=== PATIENT | female | born 1990 | race Caucasian/White ===

== ENCOUNTER → 2017-08-27 | Outpatient (CLI) | payer OTHER ==
[~2017-08-27] MED LIST: PRENTAB26 PO
[2017-08-27 14:49] LABS: BASO % 0.1 %; BASO ABS # 0.01 K/uL (0-0.2); EOS % 0.4 %; EOS ABS # 0.04 K/uL (0-0.5); HEMATOCRIT 33.6 % (37-47); HEMOGLOBIN 11.7 g/dL (12.0-16.0); IG# 0.06 K/uL (0.00-0.02); LYMPH % 18.2 %; LYMPH ABS # 2.01 K/uL (1.2-3.4); MEAN CELL VOLUME 91.6 fL (80-100); MEAN CORPUSCULAR HEMOGLOBIN 31.9 pg (25-34); MEAN CORPUSCULAR HGB CONC 34.8 g/dl (32-36); MONO % 5.8 %; MONO ABS # 0.64 K/uL (0.11-0.59); NEUT ABS # 8.26 K/uL (1.4-6.5); PLATELET COUNT 149 K/uL (130-400); RED CELL DISTRIBUTION WIDTH CV 13.7 % (11.5-14.5); RED CELL DISTRIBUTION WIDTH SD 45.4 fL (36.4-46.3); WHITE BLOOD COUNT 11.02 K/uL (4.8-10.8)
== END | disposition home or self-care (01) ==
LOC: C.LAB 13:50
PROVIDERS: ATTEND Obstetrics & Gynecology
DX: Z01.812 Encounter for preprocedural laboratory examination (principal)

== ENCOUNTER 2017-08-28 05:33 | Inpatient (IN) | payer OTHER ==
[~2017-08-28] VITALS: Ht 167.6 cm; Wt 73.5 kg
[2017-08-28] MEDS ORDERED: LACTATED RINGER'S 1000ML 1,000 ML IV SCH (05:45)
[2017-08-28] MEDS ORDERED: CITRIC ACID/SODIUM CITRATE 15 ML UDC PO ONE (05:45)
[2017-08-28 05:59] LABS: BASO % 0.4 %; BASO ABS # 0.04 K/uL (0-0.2); EOS % 0.8 %; EOS ABS # 0.07 K/uL (0-0.5); HEMATOCRIT 32.8 % (37-47); HEMOGLOBIN 11.4 g/dL (12.0-16.0); IG# 0.06 K/uL (0.00-0.02); LYMPH % 25.1 %; LYMPH ABS # 2.24 K/uL (1.2-3.4); MEAN CELL VOLUME 89.9 fL (80-100); MEAN CORPUSCULAR HEMOGLOBIN 31.2 pg (25-34); MEAN PLATELET VOLUME 8.8 fL (7.4-10.4); MONO % 8.9 %; MONO ABS # 0.79 K/uL (0.11-0.59); NEUT % 64.1 %; NEUT ABS # 5.71 K/uL (1.4-6.5); PLATELET COUNT 143 K/uL (130-400); RED CELL DISTRIBUTION WIDTH CV 13.6 % (11.5-14.5); WHITE BLOOD COUNT 8.91 K/uL (4.8-10.8)
[2017-08-28] MEDS ORDERED: CLINDAMYCIN IV 900 MG in DEXTROSE 5% ADD-VANTAGE 100ML IV SCH (06:00)
[2017-08-28] MEDS ORDERED: CITRIC ACID/SODIUM CITRATE 15 ML UDC PO SCH (06:00)
[2017-08-28 06:02] LABS: MEAN CORPUSCULAR HGB CONC 34.8 g/dl (32-36)
[2017-08-28 06:18] VITALS: Ht 167.6 cm; Wt 73.5 kg
--- NOTE | 2017-08-28 07:20 | Discharge Instructions ---
Discharge Instructions Date of Service Aug 28, 2017. Admission Reason for Admission: Breech Presentation Discharge Discharge Diagnosis / Problem: term Discharge Goals Goal(s): Routine recovery after delivery, Continuing OB care Activity Recommendations Activity Limitations: as noted below Lifting Limitations: no more than 10 pounds May Resume Sexual Activity: when tolerated Shower/Bathe: no limitations Driving or Machine Use: no limitations . Current Hospital Diet Patient's current hospital diet: Discharge Diet Recommended Diet: Regular Diet, Regular OB Diet Fluid Restriction: None Pending Studies Studies pending at discharge: no Medical Emergencies . Who to Call and When: Medical Emergencies: If at any time you feel your situation is an emergency, please call 911 immediately. . Non-Emergent Contact Non-Emergency issues call your: Primary Care Provider . . "Provider Documentation" section prepared by Kadeem Cruz. .
--- NOTE | 2017-08-28 07:22 | Progress Note ---
Progress Note Date of Service Aug 28, 2017. Progress Note Patient scheduled today for for breech presentation. I scanned her this morning and she was found to be in the vertex presentation. I discharged her to home with follow up Saturday in the office.
--- NOTE | 2017-08-28 07:34 | HISTORY & PHYSICAL EXAMINATION ---
DATE OF ADMISSION: 08/28/2017 REASON FOR ADMISSION AND CHIEF COMPLAINT: Term , breech, 39 weeks. HISTORY OF PRESENT ILLNESS: The patient is a 27-year-old female para 1-0-0-1 who presents on 08/27/2017 to the office and found to be in breech presentation. The patient was scheduled for elective repeat section and bilateral tubal ligation. She was given the option of version and declined. The risks, benefits, alternatives to the surgery were described to her in detail. Consents were signed. PAST MEDICAL HISTORY: Nonsignificant. SOCIAL HISTORY: Denies smoking, alcohol or drug use. ALLERGIES: PENICILLIN. MEDICATIONS: vitamin. PHYSICAL EXAMINATION: HEENT: Within normal limits. LUNGS: Clear to auscultation. COR: Regular rate and rhythm. ABDOMEN: Soft, gravid, breech. NEUROLOGICALLY: Intact. EXTREMITIES: Within normal limits. ASSESSMENT: Term , breech at 39 weeks, Rh negative status. GBS is positive. PLAN: Primary section and bilateral tubal ligation for voluntary sterilization procedure.
== END 2017-08-28 07:49 | disposition home or self-care (01) | DRG 782 ==
LOC: C.LD 05:33 → EDSTATUS 14:34
PROVIDERS: ADMIT Obstetrics & Gynecology; ATTEND Obstetrics & Gynecology
DX: O32.1XX1 Maternal care for breech presentation, fetus 1 (principal); Z3A.39 39 weeks gestation of pregnancy; Z22.330 Carrier of Group B streptococcus

== ENCOUNTER 2017-09-03 07:36 | Inpatient (IN) | payer OTHER ==
[~2017-09-03] VITALS: Ht 165.1 cm; Wt 74.0 kg
[2017-09-03 08:08] VITALS: Ht 165.1 cm; Wt 74.0 kg
[2017-09-03] MEDS ORDERED: CEFAZOLIN IV 2,000 MG in DEXTROSE 5% 50ML 50 ML IV ONE (09:45)
[2017-09-03] MEDS ORDERED: LACTATED RINGER'S 1000ML 1,000 ML IV PRN (09:45)
[2017-09-03] MEDS ORDERED: MISOPROSTOLTAB 50 MCG TAB PO PRN (09:45)
[2017-09-03] MEDS ORDERED: CEFAZOLIN IV 2,000 MG in SYRINGE 0 ML IV ONE (10:00)
[2017-09-03 10:03] LABS: HEMATOCRIT 32.4 % (37-47); HEMOGLOBIN 11.2 g/dL (12.0-16.0); MEAN CELL VOLUME 90.5 fL (80-100); MEAN CORPUSCULAR HEMOGLOBIN 31.3 pg (25-34); MEAN CORPUSCULAR HGB CONC 34.6 g/dl (32-36); MEAN PLATELET VOLUME 8.9 fL (7.4-10.4); PLATELET COUNT 155 K/uL (130-400); RED CELL DISTRIBUTION WIDTH CV 13.8 % (11.5-14.5); RED CELL DISTRIBUTION WIDTH SD 45.4 fL (36.4-46.3); WHITE BLOOD COUNT 10.28 K/uL (4.8-10.8)
[2017-09-03] MEDS: LACTATED RINGER'S 1000ML 1,000 ML IV SCH ×2 (10:10→19:06)
--- NOTE | 2017-09-03 10:12 | HISTORY & PHYSICAL EXAMINATION ---
DATE OF ADMISSION: 09/03/2017 HISTORY OF PRESENT ILLNESS: The patient is a 27-year-old G2, P1, due date 09/04/2017, making her 39 weeks and 5 days today. The patient had had an unremarkable course. At 38 weeks and 6 days gestation, the patient was seen in the office for routine care. Infant was found to be in breech presentation. The patient was scheduled for a the next day on 08/28/2017. On the morning of that day, ultrasound done showed that the fetus was now cephalic. was of course cancelled. She is here today for induction of labor. Ultrasound done confirms that the fetus is still in cephalic presentation. The patient's was also complicated by gestational diabetes and only required diet treatment. No medication was ever required. On arrival to labor and delivery today, the patient has no shortness of breath, no chills, no fever. heart rate is category 1. As stated above, bedside ultrasound today shows cephalic presentation. LABS: Blood type is O negative, antibody negative, rubella immune, GBS positive. PAST MEDICAL HISTORY: The patient has history of mastitis, allergic rhinitis and acne. PAST SURGICAL HISTORY: The patient had tonsillectomy at age 12. ALLERGIES: THE PATIENT ALLERGIC TO PENICILLIN. SHE REPORTS RASH WITH PENICILLIN. She has no anaphylactic reaction with penicillin. SOCIAL HISTORY: The patient is . Denies drugs, smoking or alcohol use. 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 Infant weighed 9 pounds. PHYSICAL EXAMINATION: GENERAL: Well-developed, well-nourished white female in no acute distress. HEART: S1, S2, regular rhythm and rate. LUNGS: Clear to auscultation bilaterally. ABDOMEN: Gravid. heart rate is category 1. Pelvic exam shows she is 2 cm, 50% effaced, and -3. Estimated weight by [facility] is 8 pounds. EXTREMITIES: No cyanosis, clubbing or edema. ASSESSMENT AND PLAN: A 27-year-old G2, P1 at 39 weeks and 5 days, here for induction of labor. Fetus was breech last week and in the office was scheduled for . On the day of , was found to be in cephalic presentation. Today, patient is here for induction. An ultrasound done this morning confirms that the fetus is in cephalic presentation. The patient is positive for group B strep. She has history of ALLERGY TO PENICILLIN. ALLERGY TO PENICILLIN IS A RASH: Denies anaphylactic reaction. I have discussed with patient the use of Ancef. She has agreed. She understands there is a 4-10% chance that she might have an allergic reaction to Ancef as well. Plan is to proceed with induction of labor.
[2017-09-03] MEDS: CEFAZOLIN IV 1,000 MG in SYRINGE 0 ML IV PRN (17:55)
[2017-09-03] MEDS ORDERED: LACTATED RINGER'S 1000ML 500 ML IV PRN (18:34)
[2017-09-03] MEDS: OXYTOCIN 30 UNITS/500ML NSS IV PRN (21:15)
[2017-09-04] MEDS ORDERED: BUPIVACAINE 0.25% 30 ML VIAL ONE (01:51)
[2017-09-04] MEDS ORDERED: FENTANYL CITRATE INJ 50 MCG/1 ML 2 ML VIAL ONE (01:52)
[2017-09-04] MEDS ORDERED: EpHEDrine SULFATE INJ 50 MG/ML AMP ONE (01:52)
[2017-09-04] MEDS ORDERED: FENTANYL 2MCG/ML ROPIV 1.25MG/ML 100ML BAG EPI ONE (01:53)
[2017-09-04] MEDS: CEFAZOLIN IV 1,000 MG in SYRINGE 0 ML IV PRN (02:01)
[2017-09-04] MEDS: LACTATED RINGER'S 1000ML 1,000 ML IV SCH (02:32)
[2017-09-04] MEDS ORDERED: LACTATED RINGER'S 1000ML 500 ML IV PRN (02:37)
[2017-09-04] MEDS ORDERED: NALOXONE HCL INJ 1 MG in SODIUM CHLORIDE 0.9% 1000ML 1,000 ML IV PRN (02:37)
[2017-09-04] MEDS ORDERED: EpHEDrine SULFATE INJ 50 MG/ML AMP IV PRN (02:45)
[2017-09-04] MEDS ORDERED: ONDANSETRON INJ 2 MG/ML 2 ML VIAL IV PRN (02:45)
[2017-09-04] MEDS ORDERED: FENTANYL 2MCG/ML ROPIV 1.25MG/ML 100ML BAG EPI PRN (02:45)
[2017-09-04] MEDS ORDERED: NALBUPHINE HCL INJ 10 MG/ML AMP IV PRN (02:45)
[2017-09-04] MEDS ORDERED: DiphenhydrAMINE HCL 50 MG/ML VIAL IV PRN (02:45)
[2017-09-04] MEDS ORDERED: NALOXONE HCL INJ 0.4 MG/1 ML VIAL/CARP IV PRN (02:45)
[2017-09-04] MEDS: OXYTOCIN 30 UNITS/500ML NSS IV PRN (05:07)
[2017-09-04] MEDS ORDERED: OXYTOCIN INJ 20 UNITS in LACTATED RINGER'S 1000ML 1,000 ML IV SCH (05:12)
[2017-09-04] MEDS ORDERED: IBUPROFEN 600 MG TAB PO PRN (05:15)
[2017-09-04] MEDS ORDERED: ACETAMINOPHEN/CODEINE 300/30MG TAB PO PRN ×2 (05:15)
[2017-09-04] MEDS ORDERED: LANOLIN OINT EXT PRN (05:15)
[2017-09-04] MEDS ORDERED: HYDROCORTISONE ACETATE 25 MG SUPP PR PRN (05:15)
[2017-09-04] MEDS ORDERED: OXYCODONE/ACETAMINOPHEN 5-325 TAB PO PRN (05:15)
[2017-09-04] MEDS ORDERED: SUPERCREAM 0.870 % 15GM JAR EXT PRN (05:15)
[2017-09-04] MEDS ORDERED: ACETAMINOPHEN 325 MG TAB PO PRN (05:15)
[2017-09-04] MEDS ORDERED: BENZOCAINE 20% AER SPR 82.5 GM CAN EXT PRN (05:15)
[2017-09-04] MEDS ORDERED: OXYTOCIN 30 UNITS/500ML NSS IV PRN (05:15)
[2017-09-04] MEDS ORDERED: MISOPROSTOL 200 MCG TAB PR ONE (05:17)
--- NOTE | 2017-09-04 05:22 | Anesthesia Procedure Note ---
Anesthesia Epidural Removal Nt Date & Time Sep 04, 2017 at 05:21 Vital Signs Pain Intensity: 0.0 Notes Mental Status: alert / awake / arousable, participated in evaluation Nausea / Vomiting: adequately controlled Pain: adequately controlled Airway Patency, RR, SpO2: stable & adequate BP & HR: stable & adequate Hydration State: stable & adequate Neuraxial Anesthesia: was administered, sensory block is resolving Anesthetic Complications: no major complications apparent, pt satisfied with anesthetic care Epidural: removed without complications, with tip intact
--- NOTE | 2017-09-04 05:36 | DELIVERY SUMMARY ---
DATE OF OPERATION: 09/04/2017 The patient delivered a live infant male in left occiput anterior presentation. This was also a left hand compound presentation. There was no nuchal cord, but there was however a body cord. Infant's cord was wrapped around the infant's right shoulder. Infant was delivered, placed on mother's abdomen. Cord was clamped and cut. Cord gas was obtained. scores 8 and 9. Placenta was spontaneously delivered. Inspection of the placenta shows a grossly normal placenta with 3-vessel cord. Inspection of the perineum showed a second-degree midline laceration with a right lateral wall laceration as well. This was repaired in layers with 2-0 Vicryl. Rectal exam post repair showed good sphincter tone. There are no sutures palpated in the rectum. Estimated blood loss was 500 mL All instruments were removed from the vagina and accounted for x2 including sponges and needles. Baby and mother are doing well in recovery. I attest to the content of the Intraoperative Record and any orders documented therein. Any exception s are noted below.
[2017-09-04 07:30] VITALS: BP 111/70; PULSE 80; TEMP 36.4
[2017-09-04] MEDS: PRENATAL VITAMIN TAB PO SCH (07:46)
[2017-09-04] MEDS: DOCUSATE SODIUM 100 MG CAP PO SCH ×2 (07:46→20:14)
[2017-09-04] MEDS: FERROUS SULFATE 325 MG TAB PO SCH (07:46)
[2017-09-04 11:25] VITALS: BP 103/68; PULSE 64; TEMP 36.8
[2017-09-04 15:35] VITALS: BP 109/74; PULSE 76; TEMP 37
[2017-09-04 20:25] VITALS: BP 105/75; PULSE 77; TEMP 36.8; O2SAT 98
[2017-09-04 23:15] VITALS: BP 106/68; PULSE 72; TEMP 36.6; O2SAT 97
[2017-09-05 04:25] VITALS: BP 89/55; PULSE 76; TEMP 36.8; O2SAT 97
[2017-09-05 06:41] LABS: HEMATOCRIT 32.8 % (37-47); HEMOGLOBIN 11.4 g/dL (12.0-16.0)
--- NOTE | 2017-09-05 07:12 | Discharge Instructions ---
Discharge Instructions Date of Service Sep 05, 2017. Admission Reason for Admission: Induction Discharge Discharge Diagnosis / Problem: Vaginal Delivery Discharge Goals Goal(s): Routine recovery after delivery Medications Continue Dispensed Medications: supercream, dermaplast, tucks, lansinoh Activity Recommendations Activity Limitations: per Instructions/Follow-up section . Instructions / Follow-Up Instructions / Follow-Up ACTIVITY RECOMMENDATIONS: * Gradual return to full activity over the next 2-3 weeks. * No lifting - nothing heavier than baby over the next 2-3 weeks. * Do not engage in vigorous exercise, sexual activity or sports until cleared by your physician. * Do not drive or operate any motorized equipment until cleared by your physician. * You may shower/bathe daily. BREAST CARE: If you are not breast feeding: * Wear a supportive bra 24 hours a day for one to two weeks. * Avoid stimulating your breasts and nipples as much as possible during the first few weeks after delivery. * When taking a shower, have the warm water hit your back, not breasts. * When your breasts feel full, apply ice packs. Usually three to four times a day helps ease the discomfort. * Take a mild pain medication (Tylenol/Motrin) when you are uncomfortable. If breast feeding: * Use breast milk to lubricate nipples. Lansinoh cream may be used for sore nipples. You do not need to remove cream prior to breast feeding. If using a different brand of cream, check the label for directions regarding removal of cream prior to nursing. * Wear a supportive bra. * If having problems with breasts or breast feeding, call a payroll consultant or your health care provider. EPISIOTOMY CARE: After delivery, if you have an episiotomy (stitches), the following steps will ease discomfort and aid healing. * For the first 24 hours after delivery, place ice packs next to your episiotomy to help reduce swelling. * After the first 24 hour-period, sitz baths, either portable or in the tub, are suggested. A shower with a shower arm sprayed over the episiotomy may be comforting. * Nichol care should be done after each voiding and bowel movement. Squirt warm water from a plastic bottle over the perineum (region of the body between the anus and urinary opening) and pat dry. * Use Dermoplast to ease discomfort. Shake container. Pillow directly over the episiotomy. * Place a Tucks on a clean sanitary pad next to your episiotomy. OVER THE COUNTER MEDICATION: * For discomfort or pain, you may use Acetaminophen (Tylenol), Ibuprofen (Advil ), or Naproxen (Aleve) following the package directions. * For constipation you may use Colace following the package directions. SPECIAL CARE INSTRUCTIONS: When you are discharged from the hospital, it is important for you to follow the instructions listed below: * During the first week at home, you should be able to care for yourself and your baby. In addition, the usual light household activities are encouraged. * Limit your activities to the way you feel. Do not try to clean the house or move furniture. Be sensible. * If you actively engage in sports and have done so up until the time of your delivery, you may resume these activities as soon as you feel able. This may take up to one month or even longer. Use good judgment. * Continue to take your vitamins for at least six weeks after the of your baby. * Your diet need not be limited unless you were on a special diet before your delivery. Breast-feeding mothers need around 2500 calories per day and at least 64-80 ounces of fluid per day (8 to 10 glasses). * You should eat foods from the four major food groups. Crash diets or fad diets are to be avoided. Eating lean meats, fresh fruits and vegetables, low-fat dairy products, high fiber foods and a regular exercise program, will help you get back to your pre- weight without putting your health at risk. * Constipation is sometimes a problem after delivery. Take a mild laxative as needed. If breast feeding, Milk of Magnesia is acceptable to use. You may use a suppository or Fleets enema if no episiotomy. * A daily shower or tub bath is suggested. Be sure to thoroughly and gently dry the perineum. * A bloody vaginal discharge will usually continue until around four weeks post . A small amount of bleeding may continue for as long as six weeks. Vaginal discharge changes from the bright red bleeding after delivery to pink then brownish and finally yellowish-pink before becoming white and disappearing. * Bleeding may increase with activity. Your first period may come in 4-8 weeks. If you are breast feeding, your period may be delayed even longer. * Kaycee (sex) can begin whenever both you and your partner feel comfortable and do not have any form of genital infection. It is recommended that you wait until after your return appointment and discuss with your physician. If you have questions, please talk to your health care practitioner. A condom should be used to prevent infection and . * Foreplay, gentle intercourse and lubrication is very important the first several times to prevent pain. A water-based lubricant such as K-Y jelly or Astroglide may be used. * Tampons may be used six weeks after delivery. * Douching should be avoided for 6 weeks after delivery. * If you have RH negative blood and your baby is RH positive, you will receive RHOGAM by injection prior to discharge. The nurse will give you a card to keep with you that has the date and place that you received RHOGAM after delivery. * During your care, you had a Rubella screen done to check for the presence of rubella antibodies in your blood. If your test was negative, you will receive a Rubella vaccine prior to discharge. This vaccine may cause a fever, soreness at the injection site and flu-like symptoms. If these symptoms persist, notify your health care practitioner. is not advised for three months after a Rubella vaccine. There is a higher chance of having a baby with defects if conceived within three months of getting the vaccine. * If you were discharged 24 hours from delivery or before 48 hours: Visiting nurses will come to your home 48 hours after discharge to assess you and your baby. The visiting nurse will meet with you while you are in the hospital to arrange a time and get directions to your home. * Verbalizes understanding of car seat law as reviewed with patient nursing. * Car Seat hand-out given and reviewed with patient by nursing. * Shaken baby information reviewed with patient by nursing. Call you doctor if: * Heavy bleeding (saturating several pads an hour) or passing clots the size of your fist. * A fever >101 degrees F (38.3 degrees C) on two occasions four hours apart and/or chills. * Unusual pain in the pelvic or vaginal areas. * "Baby Blues" lasting longer than two weeks. If you have any questions or concerns, call your health care practitioner at . FOLLOW-UP VISIT: * Please call the office at to schedule a 6 week examination. It is important you keep this appointment. * It is important for you to make arrangements for either yearly or twice yearly check-ups thereafter. Current Hospital Diet Patient's current hospital diet: Regular OB Diet Discharge Diet Recommended Diet: Regular OB Diet Pending Studies Studies pending at discharge: no Medical Emergencies . Who to Call and When: Medical Emergencies: If at any time you feel your situation is an emergency, please call 911 immediately. . Non-Emergent Contact Non-Emergency issues call your: Primary Care Provider, Hop Picker . . "Provider Documentation" section prepared by Rios Alexandre. .
--- NOTE | 2017-09-05 07:13 | OB/GYN Progress Note ---
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 Subjective conversation w/ patient, physical exam Ambulation: ambulating normally Voiding: no voiding problems Passing Gas: Yes Diet Tolerance: Regular Diet Lochia: Small Feeding Type: Breast Feeding Pain: 0 Notes: Doing well, no concerns. Would like to go home today. Objective Vital Signs Date Time Temp Pulse Resp B/P (MAP) Pulse Ox O2 Delivery O2 Flow Rate FiO2 09/05/17 04:25 36.8 76 16 89/55 (66) 97 Room Air 09/04/17 23:15 97 Room Air 09/04/17 23:15 36.6 72 16 106/68 (81) 97 Room Air 09/04/17 20:25 36.8 77 16 105/75 (85) 98 Room Air 09/04/17 15:35 37.0 76 18 109/74 (86) Room Air 09/04/17 15:35 Room Air 09/04/17 11:25 36.8 64 18 103/68 (80) Room Air 09/04/17 07:30 Room Air 09/04/17 07:30 36.4 80 20 111/70 (84) Room Air Physical Exam General Appearance: WELL-APPEARING Respiratory/Chest: chest non-tender, lungs clear Cardiovascular: regular rate, rhythm Abdomen: normal bowel sounds, soft Fundus: Firm Extremities: normal range of motion, non-tender, no calf tenderness Laboratory Results Last 24 Hours Test 09/05/17 06:23 Hemoglobin 11.4 g/dL Hematocrit 32.8 % Assessment and Plan Post- Day Number: 1 Continue Routine Care: -D/C home today -F/U in 6 weeks.
[2017-09-05] MEDS: DOCUSATE SODIUM 100 MG CAP PO SCH ×2 (08:07→20:20)
[2017-09-05] MEDS: PRENATAL VITAMIN TAB PO SCH (08:07)
[2017-09-05] MEDS: FERROUS SULFATE 325 MG TAB PO SCH (08:07)
[2017-09-05 08:10] VITALS: BP 100/63; PULSE 64; TEMP 36.4; O2SAT 97
[2017-09-05 08:42] VITALS: O2SAT 97
[2017-09-05 15:50] VITALS: BP 111/72; PULSE 72; TEMP 36.6; O2SAT 96
[2017-09-05] MEDS ORDERED: BISACODYL 5 MG TABEC PO SCH (20:00)
[2017-09-05 23:05] VITALS: BP 97/61; PULSE 83; TEMP 36.7; O2SAT 99
[2017-09-06] MEDS ORDERED: BISACODYL 10 MG SUPP PR PRN (07:00)
[2017-09-06 07:54] LABS: HEMATOCRIT 33.9 % (37-47); HEMOGLOBIN 11.4 g/dL (12.0-16.0); MEAN CELL VOLUME 92.4 fL (80-100); MEAN CORPUSCULAR HEMOGLOBIN 31.1 pg (25-34); MEAN CORPUSCULAR HGB CONC 33.6 g/dl (32-36); MEAN PLATELET VOLUME 9.1 fL (7.4-10.4); PLATELET COUNT 169 K/uL (130-400); RED CELL DISTRIBUTION WIDTH CV 13.5 % (11.5-14.5); RED CELL DISTRIBUTION WIDTH SD 45.3 fL (36.4-46.3); WHITE BLOOD COUNT 14.29 K/uL (4.8-10.8)
[2017-09-06 08:00] VITALS: BP 91/57; PULSE 65; TEMP 36.5
[2017-09-06] MEDS: FERROUS SULFATE 325 MG TAB PO SCH (08:33)
[2017-09-06] MEDS: PRENATAL VITAMIN TAB PO SCH (08:33)
[2017-09-06] MEDS ORDERED: MTR600X PO (10:33)
--- NOTE | 2017-09-06 10:51 | OB/GYN Progress Note ---
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 Subjective conversation w/ patient, physical exam Ambulation: ambulating normally Voiding: no voiding problems Passing Gas: Yes Diet Tolerance: Regular Diet Objective Vital Signs Date Time Temp Pulse Resp B/P (MAP) Pulse Ox O2 Delivery O2 Flow Rate FiO2 09/06/17 08:00 36.5 65 16 91/57 (68) Room Air 09/06/17 07:50 Room Air 09/05/17 23:05 36.7 83 16 97/61 (73) 99 Room Air 09/05/17 23:05 99 Room Air 09/05/17 15:50 96 Room Air 09/05/17 15:50 36.6 72 18 111/72 (85) 96 Room Air Physical Exam General Appearance: WELL-APPEARING, NO APPARENT DISTRESS Fundus: Firm Extremities: non-tender, normal inspection, no pedal edema Laboratory Results Last 24 Hours Test 09/06/17 07:32 White Blood Count 14.29 K/uL Red Blood Count 3.67 M/uL Hemoglobin 11.4 g/dL Hematocrit 33.9 % Mean Corpuscular Volume 92.4 fL Mean Corpuscular Hemoglobin 31.1 pg Mean Corpuscular Hemoglobin Concent 33.6 g/dl RDW Standard Deviation 45.3 fL RDW Coefficient of Variation 13.5 % Platelet Count 169 K/uL Mean Platelet Volume 9.1 fL Assessment and Plan Post- Day Number: 1 Continue Routine Care: tent d/c in AM
[2017-09-06 11:00] VITALS: BP_DIAS 57; PULSE 65; TEMP 36.5
== END 2017-09-06 11:15 | disposition home or self-care (01) | DRG 775 ==
LOC: C.LD 07:36 → C.OBG 09-04 07:54
PROVIDERS: ADMIT Obstetrics & Gynecology; ATTEND Obstetrics & Gynecology
PROC: 3E0P7GC Introduction of Other Therapeutic Substance into Female Reproductive, Via Natural or Artificial Opening (ICD-10-PCS; 2017-09-03)
PROC: 0KQM0ZZ Repair Perineum Muscle, Open Approach (ICD-10-PCS; principal; 2017-09-04)
PROC: 10E0XZZ Delivery of Products of Conception, External Approach (ICD-10-PCS; principal; 2017-09-04)
DX: O64.8XX0 Obstructed labor due to other malposition and malpresentation, not applicable or unspecified (principal); O24.420 Gestational diabetes mellitus in childbirth, diet controlled; O69.82X0 Labor and delivery complicated by other cord entanglement, without compression, not applicable or unspecified; O70.1 Second degree perineal laceration during delivery; O99.824 Streptococcus B carrier state complicating childbirth; Z88.0 Allergy status to penicillin; Z3A.39 39 weeks gestation of pregnancy; Z37.0 Single live birth

== ENCOUNTER 2020-07-25 23:44 | Inpatient (IN) ==
[2020-07-25] MEDS ORDERED: OXYTOCIN 30 UNITS/500 ML BAG IV PRN (23:48)
[2020-07-25] MEDS ORDERED: ceFAZolin 1000MG 1,000 MG/7.5 ML SYR IV PRN (23:50)
[2020-07-25] MEDS ORDERED: ceFAZolin 2000MG 2,000 MG/15 ML SYR IV STA (23:50)
[2020-07-25] MEDS: LACTATED RINGER'S 1,000 ML IV PRN (23:59)
[2020-07-26] MEDS ORDERED: BUTORPHANOL TARTRATE 1 MG/ML VIAL IV STA (00:06)
[2020-07-26] MEDS ORDERED: BUTORPHANOL TARTRATE 1 MG/ML VIAL ONE (00:07)
--- NOTE | 2020-07-26 00:11 | Obstetrical Progress Note ---
Date of Service July 26, 2020 Assessment & Plan Admission and Anticipated Discharge Date Admission Date: July 25, 2020 Physical Exam Physical Exam: Admit Note 30 F P2002 at 39.3 weeks admitted with SROM clear fluid and active labor. Cervix 5/100/0/vertex/anterior. GBS is positive. Covid is unknown. Will admit in active labor. Anticipate normal delivery.
[2020-07-26 00:13] LABS: Hematocrit (blood only) 36.6 % (37-47); Hemoglobin 12.7 g/dL (12.0-16.0); Mean Corpuscular Hemoglobin 31.4 pg (25-34); Mean Corpuscular Hgb Conc 34.7 g/dL (32-36); Mean Corpuscular Volume 90.6 fL (80-100); Mean Platelet Volume 9.1 fL (7.4-10.4); Platelet Count 151 K/uL (130-400); RDW Coefficient of Variation 13.4 % (11.5-14.5); RDW Standard Deviation 44.1 fL (36.4-46.3); Red Blood Count 4.04 M/uL (4.2-5.4); White Blood Count 8.56 K/uL (4.8-10.8)
[2020-07-26] MEDS ORDERED: NALOXONE HCL 1 MG in SODIUM CHLORIDE 0.9% 1000ML 1,000 ML IV PRN (00:33)
[2020-07-26] MEDS ORDERED: ONDANSETRON INJ 2 MG/ML 2 ML VIAL IV PRN (00:33)
[2020-07-26] MEDS ORDERED: NALOXONE HCL 0.4 MG/1 ML VIAL/CARP IV PRN (00:33)
[2020-07-26] MEDS ORDERED: fentaNYL 2MCG/ML ROPIVACAINE 1.25MG/ML 100 ML BAG EPI PRN (00:33)
[2020-07-26] MEDS ORDERED: ePHEDrine sulfate 50 MG/ML AMP IV PRN (00:33)
[2020-07-26] MEDS ORDERED: diphenhydrAMINE 50 MG/ML VIAL IV PRN (00:33)
[2020-07-26] MEDS ORDERED: ePHEDrine sulfate 50 MG/ML AMP ONE (00:35)
[2020-07-26] MEDS ORDERED: SODIUM CHLORIDE 0.9% INJ 10 ML VIAL ONE (00:35)
[2020-07-26] MEDS ORDERED: BUPIVACAINE 0.25% 30 ML VIAL ONE (00:36)
[2020-07-26] MEDS ORDERED: fentaNYL citrate 100 MCG/2 ML VIAL ONE (00:36)
[2020-07-26] MEDS ORDERED: fentaNYL 2MCG/ML ROPIVACAINE 1.25MG/ML 100 ML BAG EPI ONE (00:36)
--- NOTE | 2020-07-26 00:36 | Anesthesiology Consultation ---
Date of Service July 26, 2020 Covid 19 is pending Assessment & Plan Chart Review Chart Review: Patient NOT seen in Pre Admission Testing and Acceptable Risk for Labor Epidural Consults Requested none ASA ASA2 Proposed Anesthesia Anesthesia Type: Labor Epidural and CSE Risk / Benefits Reviewed With: PT / POA / Parent / Guardian, Accepts Plan and I nformed Consent Obtained History Height/Weight Height: 5 ft 5 in Weight: 79.832 kg Allergies Allergy/AdvReac Type Severity Reaction Status Date / Time Penicillins Allergy Intermediate RASH Verified 09/03/17 08:07 Medications Home Medications Medication Instructions Recorded Confirmed Last Taken Multivit/Min/Iron/Fol Ac/Pren 1 tab PO DAILY #0 tab 10/25/15 Unknown ( Vitamin) Ibuprofen 600 mg PO Q4H PRN #30 tab 09/06/17 Unknown Active Medications Generic Name Dose Route Start Last Admin Trade Name Freq PRN Reason Stop Dose Admin Lactated Ringer's 1,000 mls @ 125 mls/hr 07/25/20 23:48 07/25/20 23:59 Lr IV 07/27/20 23:47 125 mls/hr .Q8H PRN Administration L&D Protocol Protocol NPO Date Last Intake of Fluids: 07/26/20 Time Last Intake of Fluids: 19:00 Date Last Intake of Solids: 07/26/20 Time Last Intake of Solids: 19:00 Exercise / Class Metabolic Activity II 4-5 Yardwork/Stairs/Walk up hill Past Anesthesia History No Hx of Anesthesia Complications and No Family Hx of Anesthesia Complications History of PONV No Hx of PONV and No Hx of Motion Sickness Social History Smoking Status: Never smoker Do You Dip or Chew Tobacco: No Hx Alcohol Use: No Hx Substance Use: No Review of Systems no chest pain or sob Physical Exam Vital Signs Last Vital Signs Temp 36.4 C L 07/26/20 00:14 Pulse 78 07/26/20 00:34 Resp 20 07/26/20 00:14 BP 97/59 L 07/26/20 00:22 Pulse Ox 99 07/26/20 00:34 ENMT Mouth: no TMJ abnormality Thyromental Distance: > or= 3.5 Finger Breadths Mallampati Class: II Neck normal visual inspection Respiratory normal respiratory effort Auscultation: lungs clear to auscultation bilaterally Cardiovascular Rate/Rhythm: regular rate and regular rhythm Musculoskeletal Spine: normal cervical ROM Neurologic moves all extremities Psychiatric Orientation: alert and oriented x 3 Testing Laboratory Results 07/26/20 00:07
[2020-07-26] MEDS: LACTATED RINGER'S 1,000 ML IV PRN (00:57)
--- NOTE | 2020-07-26 04:44 | Delivery Summary ---
Vaginal Delivery Summary Date of Service July 26, 2020 Vaginal Delivery Summary Delivery Note live male KETAN over intact perineum with delayed cord clamping. Apgars 9/9 weight pending. Cord blood obtained followed by spontaneous delivery of intact placenta. No tears. EBL 200 ml. Final sponge and instrument count are correct. Mom and baby stable.
[2020-07-26] MEDS ORDERED: LACTATED RINGER'S 1,000 ML IV SCH (04:57)
[2020-07-26] MEDS ORDERED: OXYTOCIN 30 UNITS/500 ML BAG IV PRN (04:57)
[2020-07-26] MEDS ORDERED: DIPHTHERIA/TETANUS/PERTUSSIS 0.5 ML SYR/VIAL IM ONE (04:57)
[2020-07-26] MEDS ORDERED: ACETAMINOPHEN 325 MG TAB PO PRN (04:57)
[2020-07-26] MEDS ORDERED: bisacodyL 10 MG SUPP PR PRN (04:57)
[2020-07-26] MEDS ORDERED: BENZOCAINE 20% AER SPR 82.5 GM CAN EXT PRN (04:57)
[2020-07-26] MEDS ORDERED: SUPERCREAM 0.870% 15 GM JAR EXT PRN (04:57)
[2020-07-26] MEDS ORDERED: HYDROCORTISONE ACETATE 25 MG SUPP PR PRN (04:57)
[2020-07-26] MEDS: IBUPROFEN 600 MG TAB PO PRN ×2 (07:05→23:29)
--- NOTE | 2020-07-26 08:00 | Anesthesia Procedure Note ---
Date of Service July 26, 2020 Anesthesia Post Epidural Note Vital Signs Vital Signs: Temp Pulse Resp BP Pulse Ox 36.6 C 93 H 18 103/65 99 07/26/20 05:53 07/26/20 06:06 07/26/20 05:53 07/26/20 06:06 07/26/20 05:53 Pain Intensity Abdomen: Pain Intensity: 4 Notes Mental Status: alert / awake / arousable Nausea / Vomiting: adequately controlled Pain: adequately controlled Airway Patency, RR, SpO2: stable & adequate BP & HR: stable & adequate Hydration State: stable & adequate Neuraxial Anesthesia: was administered and sensory block is resolving Anesthetic Complications: no major complications apparent and Pt Satisfied with anesthetic care Epidural: Removed without complications and With tip intact
[2020-07-26] MEDS: FERROUS SULFATE 325 MG TAB PO SCH (10:02)
[2020-07-26] MEDS: PRENATAL VITAMIN 1 TAB PO SCH (10:02)
[2020-07-26] MEDS: DOCUSATE SODIUM 100 MG CAP PO SCH ×2 (10:02→19:50)
[2020-07-27 06:27] LABS: Hematocrit (blood only) 32.6 % (37-47); Hemoglobin 11.3 g/dL (12.0-16.0); Mean Corpuscular Hemoglobin 32.1 pg (25-34); Mean Corpuscular Hgb Conc 34.7 g/dL (32-36); Mean Corpuscular Volume 92.6 fL (80-100); Mean Platelet Volume 8.9 fL (7.4-10.4); Platelet Count 149 K/uL (130-400); RDW Coefficient of Variation 13.7 % (11.5-14.5); RDW Standard Deviation 46.1 fL (36.4-46.3); Red Blood Count 3.52 M/uL (4.2-5.4)
[2020-07-27] MEDS: FERROUS SULFATE 325 MG TAB PO SCH (07:52)
[2020-07-27] MEDS: PRENATAL VITAMIN 1 TAB PO SCH (07:52)
[2020-07-27] MEDS: DOCUSATE SODIUM 100 MG CAP PO SCH (07:52)
--- NOTE | 2020-07-27 09:52 | Obstetrical Progress Note ---
Date of Service July 27, 2020 Assessment & Plan Admission and Anticipated Discharge Date Admission Date: July 25, 2020 Physical Exam Physical Exam: abdomen soft and non tender no calf tenderness ambulating well vaginal bleeding scant hgb 11.3 patient requests discharge Results & Data ([facility]) Vital Signs (Past 12 Hours) Vital Signs Temp Pulse Resp BP Pulse Ox 07/27/20 07:50 36.3 C L 72 16 101/67 97 07/27/20 03:25 36.4 C L 62 16 96/61 L 97 07/26/20 23:00 36.7 C 73 18 109/72 98
[2020-07-27] MEDS: IBUPROFEN 600 MG TAB PO PRN (11:03)
[2020-07-27] MEDS ORDERED: bisacodyL 5 MG TABEC PO SCH (20:00)
== END 2020-07-27 11:40 | disposition home or self-care (01) | DRG 807 ==
LOC: 4S1 23:44 → 4S2 07-26 07:03